=== PATIENT | female | born 1935 | race American Indian/Alaskan Native ===

== ENCOUNTER 2018-04-04 09:36 | Emergency (ER) | payer MEDICARE ==
--- NOTE | 2018-04-04 09:47 | Emergency Department Report ---
ED Neuro Deficit HPI - General Stated Complaint: STROKE Time Seen by Provider: 04/04/18 09:38 Source: family, EMS, old records reviewed (no previous med rec available) Mode of arrival: Stretcher Limitations: Altered Mental Status - History of Present Illness Initial Comments: 82 year old female presents from assisted living with altered mental status and left-sided paralysis with unknown onset. Patient was discovered this morning with these symptoms. Past medical history includes dementia, glaucoma, hypothyroidism, and left leg DVT diagnosed one month ago (currently on Eliquis and has a filter). Patient is currently nonverbal and unable to provide any history of present illness. At her baseline patient speaks, follows commands and is able to take care of her daily needs. Shortly after arrival patient's niece and medical decision maker isn't any easy to assist with past medical history - Related Data Home Medications: Home Medications Medication Instructions Recorded Confirmed Last Taken Apixaban [Eliquis] 5 mg PO BID 04/04/18 04/04/18 Unknown Aspirin [Lo-Dose Aspirin EC] 81 mg PO QDAY 04/04/18 04/04/18 Unknown Galantamine HBr [Galantamine ER] 24 mg PO QDAY 04/04/18 04/04/18 Unknown Latanoprost 0.005% [Xalatan 0.005%] 1 drop OU QPM 04/04/18 04/04/18 Unknown Levothyroxine Sodium [Synthroid] 88 mcg PO QAM 04/04/18 04/04/18 Unknown Lovastatin [Altoprev] 40 mg PO QPM 04/04/18 04/04/18 Unknown Memantine HCl [Namenda Xr] 28 mg PO QDAY 04/04/18 04/04/18 Unknown Timolol 0.5% [Timoptic] 1 drop OU BID 04/04/18 04/04/18 Unknown Allergies/Adverse Reactions: Allergies Allergy/AdvReac Type Severity Reaction Status Date / Time No Known Allergies Allergy Unverified 04/04/18 09:38 ED Review of Systems ROS: Stated complaint: STROKE Other details as noted in HPI Comment: Unobtainable due to pts medical conditions ED Past Medical Hx - Past Medical History Hx Deep Vein Thrombosis: Yes (diagnosed February 2018) Hx Dementia: Yes Additional medical history: Hypothyroidism. Glaucoma - Surgical History Additional Surgical History: [place] filter - Medications Home Medications: Home Medications Medication Instructions Recorded Confirmed Last Taken Type Apixaban [Eliquis] 5 mg PO BID 04/04/18 04/04/18 Unknown History Aspirin [Lo-Dose Aspirin EC] 81 mg PO QDAY 04/04/18 04/04/18 Unknown History Galantamine HBr [Galantamine ER] 24 mg PO QDAY 04/04/18 04/04/18 Unknown History Latanoprost 0.005% [Xalatan 0.005%] 1 drop OU QPM 04/04/18 04/04/18 Unknown History Levothyroxine Sodium [Synthroid] 88 mcg PO QAM 04/04/18 04/04/18 Unknown History Lovastatin [Altoprev] 40 mg PO QPM 04/04/18 04/04/18 Unknown History Memantine HCl [Namenda Xr] 28 mg PO QDAY 04/04/18 04/04/18 Unknown History Timolol 0.5% [Timoptic] 1 drop OU BID 04/04/18 04/04/18 Unknown History ED Neuro Physical Exam - General Suspected Stroke: Yes - NIHSS Assessment Interval: Baseline 1a. Level of Consciousness: not alert, arousable 1b. LOC Questions: answers no questions correctly 1c. LOC Commands: performs no tasks correctly 2. Best Gaze: forced deviation (right gaze preference) 3. Visual: no visual loss (unbale to assess) 4. Facial Palsy: complete paralysis (left) 5b. Motor Arm Right: no drift 5a. Motor Arm Left: some gravity effort 6a. Motor Leg Left: some gravity effort 6b. Motor Leg Right: no drift 7. Limb Ataxia: absent (unble to follow commands) 8. Sensory: normal (can not follow commands or provide feedback) 9. Best Language: mute/global aphasia 10. Dysarthria: normal (mute) 11. Extinction/Inattention: no abnormality (unable to follow commands) - Other Other exam information: General: No limitations, patient is alert in no acute distress Head exam: Atraumatic, normocephalic Eyes exam: Normal appearance, pupils equal reactive to light, right-sided gaze preference ENT: Moist mucous membrane, thrush Neck exam: Normal inspection, full range of motion, no meningismus nontender Respiratory exam: Clear to auscultation bilateral, no wheezes, rales, crackles Cardiovascular: Normal rate and rhythm Abdomen: Soft, nondistended, and nontender Extremity: Normal inspection Back: Normal Inspection, full range of motion, no tenderness Neurologic: His eyes spontaneously but would not follow commands. Right gaze preference. Left facial droop and left-sided weakness. NIH stroke scale Psychiatric: normal affect, normal mood Skin: Warm, dry, intact ED Course Vital Signs 04/04/18 04/04/18 04/04/18 09:40 09:57 10:17 Temperature 98.2 F Pulse Rate 113 H 108 H Respiratory 20 16 20 Rate Blood Pressure 137/74 Blood Pressure 141/71 [Left] O2 Sat by Pulse 100 100 Oximetry 04/04/18 04/04/18 04/04/18 10:30 10:50 11:00 Temperature Pulse Rate 119 H 100 H 112 H Respiratory 20 20 Rate Blood Pressure 142/97 Blood Pressure 148/96 [Left] O2 Sat by Pulse 100 98 100 Oximetry 04/04/18 04/04/18 04/04/18 11:30 11:45 12:00 Temperature Pulse Rate 115 H 111 H 111 H Respiratory 20 20 20 Rate Blood Pressure 164/90 165/84 148/84 Blood Pressure [Left] O2 Sat by Pulse 100 100 100 Oximetry - Reevaluation(s) Reevaluation #1: 04/04/18 10:47 Niece is the power of attorney recruiter and gave person 04/04/18 Patient had a right gaze preference with rhythmic blinking of the eyes do for Keppra initiated for possible seizure activity. No tonic-clonic movement - Consultations Consultation #1: 04/04/18 10:53 Case discussed with [facility] transfer service, awaiting call back 04/04/18 11:[address] Bob Ram accepted pt. [facility]. - EJ/Peripheral Line Neck L Time Out Performed: Yes Indications: multiple IV sites needed Skin Cleansed in Sterile Fashion: Yes Size: 20 Dressing Placed: Tegaderm Patient Tolerated Procedure: well - Intubation Time Out Performed: Yes Sedative: Etomidate Mg Given: 20 Paralytic: Rocuronium Mg Given: 60 Laryngoscope: Abram Size: 3 ET Tube Size: 7.5 Tube Secured Depth (cm): 22 Tube Secured Location: teeth Tube Placement Confirmation: visualized tube passing t, equal breath sounds bilat, no breath sounds over epi, confirmation by capnometr Patient Tolerated Procedure: well Intubation Complications: none - Lab Data Result diagrams: 04/04/18 09:49 04/04/18 09:49 Lab Results 04/04/18 04/04/18 04/04/18 Range/Units 09:49 09:49 09:49 WBC 7.8 (4.5-11.0) K/mm3 RBC 4.44 (3.65-5.03) M/mm3 Hgb 12.4 (10.1-14.3) gm/dl Hct 38.8 (30.3-42.9) % MCV 87 (79-97) fl MCH 28 (28-32) pg MCHC 32 (30-34) % RDW 14.0 (13.2-15.2) % Plt Count 431 (140-440) K/mm3 Lymph % (Auto) 10.3 L (13.4-35.0) % Lewis % (Auto) 7.9 H (0.0-7.3) % Eos % (Auto) 0.2 (0.0-4.3) % Baso % (Auto) 0.5 (0.0-1.8) % Lymph # 0.8 L (1.2-5.4) K/mm3 Lewis # 0.6 (0.0-0.8) K/mm3 Eos # 0.0 (0.0-0.4) K/mm3 Baso # 0.0 (0.0-0.1) K/mm3 Seg Neutrophils % 81.1 H (40.0-70.0) % Seg Neutrophils # 6.3 (1.8-7.7) K/mm3 PT 17.6 H (12.2-14.9) Sec. INR 1.36 H (0.87-1.13) APTT 32.2 (24.2-36.6) Sec. Thrombin Time 17.0 (15.1-19.6) Sec. Sodium Cancelled Potassium Cancelled Chloride Cancelled Carbon Dioxide Cancelled Anion Gap Cancelled BUN Cancelled Creatinine Cancelled Estimated GFR Cancelled BUN/Creatinine Ratio Cancelled Glucose Cancelled Calcium Cancelled Total Bilirubin (0.1-1.2) mg/dL AST (5-40) units/L ALT (7-56) units/L Alkaline Phosphatase (35-129) units/L Total Creatine Kinase 398 H (30-135) units/L CK-MB (CK-2) 6.1 H (0.0-4.0) ng/mL CK-MB (CK-2) Rel Index 1.5 (0-4) Troponin T 0.052 H (0.00-0.029) ng/mL Total Protein (6.3-8.2) g/dL Albumin (3.9-5) g/dL Albumin/Globulin Ratio % Triglycerides 97 (2-149) mg/dL Cholesterol 164 (50-199) mg/dL LDL Cholesterol Direct 94 (50-130) mg/dL HDL Cholesterol 62 H (40-59) mg/dL Cholesterol/HDL Ratio 2.64 % TSH (0.270-4.200) mlU/mL Free T4 (0.76-1.46) ng/dL Urine Color (Yellow) Urine Turbidity (Clear) Urine pH (5.0-7.0) Ur Specific Hague (1.003-1.030) Urine Protein (Negative) mg/dL Urine Glucose (UA) (Negative) mg/dL Urine Ketones (Negative) mg/dL Urine Blood (Negative) Urine Nitrite (Negative) Urine Bilirubin (Negative) Urine Urobilinogen (<2.0) mg/dL Ur Leukocyte Esterase (Negative) Urine WBC (Auto) (0.0-6.0) /HPF Urine RBC (Auto) (0.0-6.0) /HPF U Epithel Cells (Auto) (0-13.0) /HPF 04/04/18 04/04/18 04/04/18 Range/Units 09:49 09:49 11:20 WBC (4.5-11.0) K/mm3 RBC (3.65-5.03) M/mm3 Hgb (10.1-14.3) gm/dl Hct (30.3-42.9) % MCV (79-97) fl MCH (28-32) pg MCHC (30-34) % RDW (13.2-15.2) % Plt Count (140-440) K/mm3 Lymph % (Auto) (13.4-35.0) % Lewis % (Auto) (0.0-7.3) % Eos % (Auto) (0.0-4.3) % Baso % (Auto) (0.0-1.8) % Lymph # (1.2-5.4) K/mm3 Lewis # (0.0-0.8) K/mm3 Eos # (0.0-0.4) K/mm3 Baso # (0.0-0.1) K/mm3 Seg Neutrophils % (40.0-70.0) % Seg Neutrophils # (1.8-7.7) K/mm3 PT (12.2-14.9) Sec. INR (0.87-1.13) APTT (24.2-36.6) Sec. Thrombin Time (15.1-19.6) Sec. Sodium 150 H Potassium 3.5 L Chloride 106.7 Carbon Dioxide 26 Anion Gap 21 BUN 13 Creatinine 0.5 L Estimated GFR > 60 BUN/Creatinine Ratio 26 Glucose 107 H Calcium 9.1 Total Bilirubin 0.50 (0.1-1.2) mg/dL AST 24 (5-40) units/L ALT 18 (7-56) units/L Alkaline Phosphatase 70 (35-129) units/L Total Creatine Kinase (30-135) units/L CK-MB (CK-2) (0.0-4.0) ng/mL CK-MB (CK-2) Rel Index (0-4) Troponin T (0.00-0.029) ng/mL Total Protein 7.3 (6.3-8.2) g/dL Albumin 3.0 L (3.9-5) g/dL Albumin/Globulin Ratio 0.7 % Triglycerides (2-149) mg/dL Cholesterol (50-199) mg/dL LDL Cholesterol Direct (50-130) mg/dL HDL Cholesterol (40-59) mg/dL Cholesterol/HDL Ratio % TSH 0.947 (0.270-4.200) mlU/mL Free T4 1.35 (0.76-1.46) ng/dL Urine Color Yellow (Yellow) Urine Turbidity Clear (Clear) Urine pH 6.0 (5.0-7.0) Ur Specific Hague 1.014 (1.003-1.030) Urine Protein <15 mg/dl (Negative) mg/dL Urine Glucose (UA) Neg (Negative) mg/dL Urine Ketones 20 (Negative) mg/dL Urine Blood Neg (Negative) Urine Nitrite Neg (Negative) Urine Bilirubin Neg (Negative) Urine Urobilinogen 4.0 (<2.0) mg/dL Ur Leukocyte Esterase Neg (Negative) Urine WBC (Auto) < 1.0 (0.0-6.0) /HPF Urine RBC (Auto) 2.0 (0.0-6.0) /HPF U Epithel Cells (Auto) 2.0 (0-13.0) /HPF - EKG Data -: EKG Interpreted by Me EKG shows normal: sinus rhythm, axis (qrs 5), QRS complexes (qrsd 76), ST-T waves (no stemi/t inv) Rate: tachycardia (114) When compared to previous EKG there are: previous EKG unavailable - Radiology Data Radiology results: report reviewed, image reviewed (pcxr: lungs clear, et tube good position) HEAD CT WITHOUT CONTRAST INDICATION: Neurologic deficits less than 6 hours or symptoms present upon awakening. 98N. COMPARISON: None similar at this institution. FINDINGS: Noncontrast head CT demonstrates a large, approximately 5.1 x 4.7 cm mildly lobulated mass in inferior right frontal lobe/ganglionic region as on axial series 2, image 27 with displacement of the right sylvian fissure and also extends into the right temporal lobe medially as on axial images 18-25. Subtle right uncal herniation may also be developing as on axial images 20-23. Extensive surrounding vasogenic edema also involves the right cerebral hemisphere with asymmetric effacement of the right lateral ventricle, most the frontal horn. Mild asymmetric prominence/enlargement of the left lateral ventricle may suggest mild hydrocephalus upon underlying age-appropriate atrophy. Approximately 8mm right to left midline shift noted, axial image 32. Mild periventricular hypodensities. No acute hemorrhage or abnormal extra-axial fluid collections. Normal posterior fossa. Bilateral cataract surgery. Leftward nasal septal deviation. Clear imaged paranasal sinuses and mastoid air cells. Atherosclerotic ICA calcifications. Intact calvarium. Hyperostosis frontalis interna. Normal scalp. Radiopaque dentures/dental material. CONCLUSION: 1. 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 2. Various other findings, including possible slight left hydrocephalus also developing. MRI with contrast would help further define disease extent, when obtainable. I phoned the above results to Dr. Hogde in the ER, 9:45 AM, 04/04/2018. - Medical Decision Making ams/left weakness + brain mass IV decadron, IV iraida Neurosurgeon at [facility] accepted pt Intubated for airway protection (neuro intubation lidocaine, etomidate, rocuronium) RR 20 on vent Propofol drip - Differential Diagnosis cva, mass, sz, ICH, encephalopathy Critical Care Time: Yes Critical care time in (mins) excluding proc time.: 35 Critical care attestation.: If time is entered above; I have spent that time in minutes in the direct care of this critically ill patient, excluding procedure time. ED Disposition Clinical Impression: Brain mass, Midline shift of brain, Left-sided weakness, History of DVT (deep vein thrombosis), Anticoagulant long-term use Disposition: DC/TX-70 ANOTHER TYPE HLTHCARE Is pt being admited?: No Condition: Stable Referrals: PRIMARY CARE,MD [Primary Care Provider] - 3-5 Days Time of Disposition: 12:11 (accepted for transfer to [facility])
--- NOTE | 2018-04-04 10:07 | Cat Scan Report ---
HEAD CT WITHOUT CONTRAST INDICATION: Neurologic deficits less than 6 hours or symptoms present upon awakening. 98N. COMPARISON: None similar at this institution. FINDINGS: Noncontrast head CT demonstrates a large, approximately 5.1 x 4.7 cm mildly lobulated mass in inferior right frontal lobe/ganglionic region as on axial series 2, image 27 with displacement of the right sylvian fissure and also extends into the right temporal lobe medially as on axial images 18-25. Subtle right uncal herniation may also be developing as on axial images 20-23. Extensive surrounding vasogenic edema also involves the right cerebral hemisphere with asymmetric effacement of the right lateral ventricle, most the frontal horn. Mild asymmetric prominence/enlargement of the left lateral ventricle may suggest mild hydrocephalus upon underlying age-appropriate atrophy. Approximately 8mm right to left midline shift noted, axial image 32. Mild periventricular hypodensities. No acute hemorrhage or abnormal extra-axial fluid collections. Normal posterior fossa. Bilateral cataract surgery. Leftward nasal septal deviation. Clear imaged paranasal sinuses and mastoid air cells. Atherosclerotic ICA calcifications. Intact calvarium. Hyperostosis frontalis interna. Normal scalp. Radiopaque dentures/dental material. CONCLUSION: 1. 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 2. Various other findings, including possible slight left hydrocephalus also developing. MRI with contrast would help further define disease extent, when obtainable. I phoned the above results to Dr. Hodge in the ER, 9:45 AM, 04/04/2018. Thank you for the opportunity to participate in this patient's care.
[2018-04-04] MEDS ORDERED: KEPPRA 1,000 MG/NS 0.75% 100ML 1,000 MG/100 ML BAG IV ONE (10:15)
[2018-04-04 10:18] LABS: Basophils % (Auto) 0.5 % (0.0-1.8); Eosinophils % (Auto) 0.2 % (0.0-4.3); Hematocrit 38.8 % (30.3-42.9); Hemoglobin 12.4 gm/dl (10.1-14.3); Lymphocytes # (Auto) 0.8 K/mm3 (1.2-5.4); Lymphocytes % (Auto) 10.3 % (13.4-35.0); Mean Corpuscular HGB Conc 32 % (30-34); Mean Corpuscular Hemoglobin 28 pg (28-32); Mean Corpuscular Volume 87 fl (79-97); Monocytes # (Auto) 0.6 K/mm3 (0.0-0.8); Monocytes % (Auto) 7.9 % (0.0-7.3); Platelet Count 431 K/mm3 (140-440); Red Blood Count 4.44 M/mm3 (3.65-5.03)
[2018-04-04] MEDS: KEPPRA 1,000 MG/NS 0.75% 100ML 1,000 MG/100 ML BAG IV ONE (10:25)
[2018-04-04 10:28] LABS: Creatine Kinase MB 6.1 ng/mL (0.0-4.0); INR 1.36 (0.87-1.13)
[2018-04-04 10:29] LABS: Partial Thromboplastin Time 32.2 Sec. (24.2-36.6)
[2018-04-04 10:31] LABS: Alanine Aminotransferase 18 units/L (7-56); BUN/Creatinine Ratio 26; Blood Urea Nitrogen 13 mg/dL (7-17); Calcium 9.1 mg/dL (8.4-10.2); Hemolysis Index 23
[2018-04-04 10:38] LABS: Free T4 (Free Thyroxine) 1.35 ng/dL (0.76-1.46)
[2018-04-04 10:42] LABS: Chol/HDL Ratio 2.64 %
[2018-04-04] MEDS ORDERED: VASELINE LIP THERAPY TP PRN (10:43)
[2018-04-04] MEDS ORDERED: ARTIFICIAL TEARS OPHTH OINT OU PRN (10:43)
[2018-04-04] MEDS ORDERED: NACL 0.9% 500 ML IV SCH (11:00)
[2018-04-04] MEDS: DECADRON IV ONE (11:10)
[2018-04-04] MEDS: DIPRIVAN 10 MG/ML 1,000 MG/100 ML BOTTLE IV SCH (11:23)
[2018-04-04 12:07] LABS: Bilirubin,Urine NEG (Negative); Blood,Urine NEG (Negative); Color,Urine Yellow (Yellow); Protein,Urine <15 mg/dL mg/dL (Negative); WBC,Urine < 1.0 /HPF (0.0-6.0)
[2018-04-04 12:08] VITALS: BP 148/84
--- NOTE | 2018-04-04 12:43 | XRay Report ---
PORTABLE CHEST INDICATION: ET tube placement. COMPARISON: None similar. FINDINGS: Portable, frontal chest radiograph demonstrates an endotracheal tube tip approximately 2 cm above the ole. Clear lungs. Slight exaggerated cardiomediastinal silhouette. Right hemidiaphragm approximately 1.5 cm higher than the left. EKG leads. Multilevel thoracic spondylosis. CONCLUSION: Uncomplicated intubation without acute chest process, as described. Thank you for the opportunity to participate in this patient's care.
[2018-04-04] MEDS ORDERED: ZEMURON IV ONE (14:09)
[2018-04-04] MEDS ORDERED: AMIDATE IV ONE (14:09)
[2018-04-04] MEDS ORDERED: XYLOCAINE CARDIAC IV ONE (14:09)
== END 2018-04-04 12:30 | disposition other institution (70) ==
LOC: ED 09:36
DX: G93.89 Other specified disorders of brain (principal); R41.82 Altered mental status, unspecified; R53.1 Weakness; Z79.01 Long term (current) use of anticoagulants
CPT/HCPCS: 31500; 36415; 36569; 51702; 70450; 71045; 80053; 80061; 81001; 82550; 82553; 84439; 84443; 84484; 85025; 85610; 85670; 85730; 93005; 93010; 96365; 96375; 99291; J1100; J1953; J2001; J2704; 94002